=== PATIENT | female | born 1940 | race Caucasian/White ===

== ENCOUNTER 2016-05-26 20:33 | Emergency (ER) | payer OTHER ==
[~2016-05-26] VITALS: Ht 137.2 cm; Wt 72.6 kg
[2016-05-26 20:33] VITALS: BP 140/73; PULSE 96; RESP 20; TEMP 98; O2SAT 99
--- NOTE | 2016-05-26 20:33 | NUR ---
Placed in room 1 . Placed on rn cardiac, blood pressure machine and pulse oximeter. To gown for exam. Side rails up. Report given to Henri BRADLEY.
--- NOTE | 2016-05-26 20:40 | NUR ---
Pt states that she has been having chest pressure and dyspnea all day and in the last two hours, her pain and dyspnea has gotten worse. Lung sounds clear in all lobes. No distress noted. Pt has nausea but no vomitting. Will continue to monitor via cake icer. No distress noted.
--- NOTE | 2016-05-26 20:40 | NUR ---
ER Dr. Chang at bedside examining patient.
[2016-05-26] MEDS ORDERED: NACL 0.9% 1,000 ML IV ONE (20:41)
[2016-05-26] MEDS ORDERED: ONDANSETRON HCL 4 MG/2 ML VIAL IVP ONE (20:45)
[2016-05-26] MEDS ORDERED: ASPIRIN 81 MG TAB.CHEW PO ONE (21:00)
[2016-05-26] MEDS ORDERED: LORazepam 2 MG/ML VIAL (FOR ER USE) IVP ONE (21:00)
[2016-05-26 21:17] LABS: BASOPHILS % (AUTO) 0.1 % (0.0-2.0); HEMATOCRIT 32.7 % (36-48); LYMPHOCYTES # (AUTO) 0.6 K/uL (1.0-5.5); LYMPHOCYTES % (AUTO) 9.3 % (20.5-51.5); MEAN CORPUSCULAR HEMOGLOBIN 30 pg (27-31); MEAN CORPUSCULAR HGB CONC 34 % (32-36); MEAN CORPUSCULAR VOLUME 88 fL (79.0-98.0); MONOCYTES # (AUTO) 0.2 K/uL (0.0-1.0); MONOCYTES % (AUTO) 3.2 % (1.7-9.3); NEUTROPHILS % (AUTO) 87.4 % (40.0-70.0); PLATELET COUNT (AUTO) 261 K/uL (130-430); RED BLOOD CELL COUNT(AUTO) 3.71 MIL/uL (4.2-6.2); RED CELL DISTRIBUTION WIDTH 13.1 % (9.0-15.0); WHITE BLOOD COUNT (AUTO) 6.8 K/uL (4.8-10.8)
[2016-05-26 21:20] LABS: ANION GAP 13 (5-15); CALCIUM 9.1 mg/dL (8.4-11.0); CHLORIDE 99 mmol/L (98-107); CREATININE 1.36 mg/dL (0.55-1.30); GLUCOSE 238 mg/dL (70-99); POTASSIUM 3.8 mmol/L (3.5-5.1); SODIUM SERUM 137 mmol/L (136-145); UREA NITROGEN, BLOOD 26 mg/dL (8-21)
[2016-05-26 21:25] LABS: PROTHROMBIN TIME 10.8 SECS (9.5-12.5)
[2016-05-26 21:29] LABS: ALANINE AMINOTRANSFERASE 61 U/L (12-78); ALBUMIN 3.7 g/dL (3.4-4.8); ASPARTATE AMINOTRANSFERASE 39 U/L (10-37); LIPASE 137 U/L (73-393); TOTAL BILIRUBIN 0.3 mg/dL (0.0-1.0); TOTAL PROTEIN, SERUM 7.4 g/dL (6.4-8.3)
[2016-05-26 21:48] LABS: BILIRUBIN,URINE NEGATIVE (NEGATIVE); BLOOD, URINE 1+ (NEGATIVE); CLARITY/URINE CLEAR (CLEAR); COLOR,URINE YELLOW (YELLOW); GLUCOSE,URINE NEGATIVE (NEGATIVE); KETONES,URINE NEGATIVE (NEGATIVE); LEUKOCYTE ESTERASE ,URINE 1+ (NEGATIVE); NITRITE, URINE NEGATIVE (NEGATIVE); PROTEIN URINE NEGATIVE (NEGATIVE); UROBILINOGEN,URINE 0.2 (0.2-1.0)
[2016-05-26 22:24] LABS: BACTERIA,URINE FEW /HPF (None Seen); RBC,URINE 0-3 /HPF (0-3)
[2016-05-26 22:25] LABS: MUCUS,URINE None Seen /LPF (None Seen)
[2016-05-26 23:07] VITALS: BP 149/70; PULSE 88; RESP 20; TEMP 98; O2SAT 99
--- NOTE | 2016-05-26 23:07 | NUR ---
Patient given written and verbal discharge instructions and verbalizes understanding. ER MD discussed with patient the results and treatment provided. Patient in stable condition. ID arm band removed. IV catheter removed intact and dressing applied, no active bleeding. Rx of Ativan given. Patient educated on pain management and to follow up with PMD. Pain Scale 0/10. Opportunity for questions provided and answered.
== END 2016-05-26 23:07 | disposition home or self-care (01) ==
LOC: SED 20:33 → MERGE 20:33 → EDBD 20:33 → SED 23:07
DX: F41.9 Anxiety disorder, unspecified (principal); R06.4 Hyperventilation; Z88.2 Allergy status to sulfonamides
CPT/HCPCS: 36415; 71010; 80053; 81000; 83690; 84484; 85025; 85610; 87086; 96361; 96374; 96375; 99285; J2060; J2405; J7030; 93005

== ENCOUNTER 2016-06-02 10:05 | Outpatient (CLI) | payer OTHER | END 2016-06-02 20:15 | disposition home or self-care (01) | LOC: SMA 10:05 | PROVIDERS: ATTEND Family Medicine | DX: N63 Unspecified lump in breast (principal) | CPT/HCPCS: G0206 ×2 ==

== ENCOUNTER 2016-06-23 14:33 | Emergency (ER) | payer OTHER ==
[~2016-06-23] VITALS: Ht 144.8 cm; Wt 73.5 kg
[2016-06-23 15:03] VITALS: BP_SYST 155
[2016-06-23] MEDS ORDERED: ACETAMINOPHEN 500 MG TABLET PO ONE (15:15)
[2016-06-23] MEDS ORDERED: KETOROLAC TROMETHAMINE 30 MG VIAL IM ONE (15:15)
--- NOTE | 2016-06-23 15:15 | NUR ---
Patient to ER bed 4 to gown for evaluation. Side rails up. Report given to MIRNA Sandoval.
--- NOTE | 2016-06-23 15:17 | NUR ---
Pt to bed 4
--- NOTE | 2016-06-23 15:20 | NUR ---
Pt c/o mid lumbar back pain radiating to left lumbar. no deformity/injury reported or noted. reports pain is 8/10. No acute distress
--- NOTE | 2016-06-23 15:50 | NUR ---
Urine specimen collected and analyzed in ER. Results given to ER .
[2016-06-23 15:58] LABS: BILIRUBIN,URINE NEGATIVE (NEGATIVE); BLOOD, URINE 1+ (NEGATIVE); CLARITY/URINE CLEAR (CLEAR); COLOR,URINE YELLOW (YELLOW); GLUCOSE,URINE NEGATIVE (NEGATIVE); KETONES,URINE NEGATIVE (NEGATIVE); LEUKOCYTE ESTERASE ,URINE NEGATIVE (NEGATIVE); NITRITE, URINE NEGATIVE (NEGATIVE); PROTEIN URINE NEGATIVE (NEGATIVE); UROBILINOGEN,URINE 0.2 (0.2-1.0)
[2016-06-23 16:07] LABS: BACTERIA,URINE FEW /HPF (None Seen); MUCUS,URINE None Seen /LPF (None Seen); RBC,URINE 0-3 /HPF (0-3); WBC,URINE 0-3 /HPF (0-3)
[2016-06-23] MEDS ORDERED: DEXAMETHASONE SOD PHOSPHATE 10 MG/ML VIAL IM ONE (17:15)
--- NOTE | 2016-06-23 17:33 | NUR ---
Patient given written and verbal discharge instructions and verbalizes understanding. ER MD discussed with patient the results and treatment provided. Patient in stable condition. ID arm band removed. Rx of Tylenol, Flexaril given. Patient educated on pain management and to follow up with PMD. Pain Scale 3/10 and tolerable. Opportunity for questions provided and answered.
[2016-06-23 17:34] VITALS: BP_SYST 131
== END 2016-06-23 17:33 | disposition home or self-care (01) ==
LOC: SED 14:33
DX: S39.012A Strain of muscle, fascia and tendon of lower back, initial encounter (principal); J44.9 Chronic obstructive pulmonary disease, unspecified; I10 Essential (primary) hypertension; Z88.2 Allergy status to sulfonamides; X50.0XXA Overexertion from strenuous movement or load, initial encounter; Y93.89 Activity, other specified; Y92.89 Other specified places as the place of occurrence of the external cause; Y99.8 Other external cause status
CPT/HCPCS: 72100; 81000; 96372; 99285; J1100; J1885

== ENCOUNTER 2017-01-10 09:46 | Outpatient (CLI) | payer OTHER | END 2017-01-10 18:34 | disposition home or self-care (01) | LOC: SMA 09:46 | PROVIDERS: ATTEND Family Medicine | DX: R92.2 Inconclusive mammogram (principal) | CPT/HCPCS: G0204 ==

== ENCOUNTER 2018-01-11 11:26 | Outpatient (CLI) | payer OTHER | END 2018-01-11 21:03 | disposition home or self-care (01) | LOC: SMA 11:26 | PROVIDERS: ATTEND Family Medicine | DX: Z12.31 Encounter for screening mammogram for malignant neoplasm of breast (principal) | CPT/HCPCS: 77067 ==

== ENCOUNTER 2018-04-03 10:43 | Inpatient (IN) | payer OTHER ==
[~2018-04-03] VITALS: Ht 149.9 cm; Wt 73.9 kg
[2018-04-03 10:54] VITALS: BP_SYST 161
[2018-04-03] MEDS ORDERED: ONDANSETRON HCL 4 MG/2 ML VIAL IVP ONE (11:15)
[2018-04-03] MEDS ORDERED: PANTOPRAZOLE SODIUM 40 MG/VIAL (PROTONIX) IVP ONE (11:15)
[2018-04-03] MEDS ORDERED: NS 500 ML IV ONE (11:15)
[2018-04-03 11:35] LABS: BILIRUBIN,URINE NEGATIVE (NEGATIVE); BLOOD, URINE NEGATIVE (NEGATIVE); CLARITY/URINE CLEAR (CLEAR); COLOR,URINE YELLOW (YELLOW); GLUCOSE,URINE NEGATIVE (NEGATIVE); KETONES,URINE NEGATIVE (NEGATIVE); LEUKOCYTE ESTERASE ,URINE NEGATIVE (NEGATIVE); NITRITE, URINE NEGATIVE (NEGATIVE); PH,URINE 5.5 (5.0-8.0); PROTEIN URINE NEGATIVE (NEGATIVE); UROBILINOGEN,URINE 0.2 (0.2-1.0)
[2018-04-03 11:41] LABS: BASOPHILS % (AUTO) 0.7 % (0.0-2.0); EOSINOPHILS # (AUTO) 0.1 K/uL (0.0-0.4); EOSINOPHILS % (AUTO) 1.4 % (0.0-4.0); HEMATOCRIT 34.2 % (36-48); HEMOGLOBIN 11.7 g/dL (12.0-16.0); LYMPHOCYTES # (AUTO) 1.4 K/uL (1.0-5.5); LYMPHOCYTES % (AUTO) 22.4 % (20.5-51.5); MEAN CORPUSCULAR HEMOGLOBIN 29 pg (27-31); MEAN CORPUSCULAR HGB CONC 34 % (32-36); MEAN CORPUSCULAR VOLUME 84 fL (79.0-98.0); MONOCYTES # (AUTO) 0.8 K/uL (0.0-1.0); MONOCYTES % (AUTO) 12.8 % (1.7-9.3); NEUTROPHILS # (AUTO) 3.9 K/uL (1.8-7.7); NEUTROPHILS % (AUTO) 62.7 % (40.0-70.0); PLATELET COUNT (AUTO) 312 K/uL (130-430); RED BLOOD CELL COUNT(AUTO) 4.09 MIL/uL (4.2-6.2); RED CELL DISTRIBUTION WIDTH 12.6 % (9.0-15.0); WHITE BLOOD COUNT (AUTO) 6.2 K/uL (4.8-10.8)
[2018-04-03 11:54] LABS: ANION GAP 12 (5-15); CALCIUM 10.1 mg/dL (8.4-11.0); CHLORIDE 91 mmol/L (98-107); CREATININE 1.32 mg/dL (0.55-1.30); GLUCOSE 115 mg/dL (70-99); POTASSIUM 5.5 mmol/L (3.5-5.1); SODIUM SERUM 125 mmol/L (136-145); UREA NITROGEN, BLOOD 38 mg/dL (8-21)
[2018-04-03 11:59] LABS: ALANINE AMINOTRANSFERASE 148 U/L (12-78); ALBUMIN 3.8 g/dL (3.4-4.8); ASPARTATE AMINOTRANSFERASE 101 U/L (10-37); LIPASE 415 U/L (73-393); TOTAL BILIRUBIN 0.4 mg/dL (0.0-1.0)
[2018-04-03 12:17] LABS: PROTHROMBIN TIME 9.9 SECS (9.5-12.5)
[2018-04-03] MEDS ORDERED: ALBUTEROL SULFATE 0.083% 2.5 MG/3 ML VIAL.NEB INH ONE (13:00)
[2018-04-03] MEDS ORDERED: SODIUM POLYSTYRENE SULFONATE 15 GM/60 ML UDBTL PO ONE (13:00)
[2018-04-03] MEDS ORDERED: HYDR100T25 PO (13:37)
[2018-04-03] MEDS ORDERED: OMEP40CA33 PO (13:37)
[2018-04-03] MEDS ORDERED: SIMV40TA5 PO (13:37)
[2018-04-03] MEDS ORDERED: CETI1TAB2 PO (13:37)
[2018-04-03] MEDS ORDERED: ALBMDI INH (13:37)
[2018-04-03 14:12] VITALS: BP_SYST 120
[2018-04-03] MEDS: D5NS 1,000 ML IV SCH ×2 (14:41→21:39)
[2018-04-03 16:00] VITALS: BP_SYST 140
[2018-04-03] MEDS ORDERED: ONDANSETRON HCL 4 MG/2 ML VIAL IVP PRN (17:00)
[2018-04-03] MEDS ORDERED: ACETAMINOPHEN 650 MG/20.3 ML UDC PO PRN (17:00)
[2018-04-03] MEDS ORDERED: MORPHINE 4 MG/ML INJ. SYRINGE IVP PRN ×2 (17:00)
[2018-04-03 23:49] VITALS: BP_SYST 142
[2018-04-04] MEDS: D5NS 1,000 ML IV SCH ×4 (04:19→22:36)
[2018-04-04 08:00] VITALS: BP_SYST 148
[2018-04-04] MEDS: ACETAMINOPHEN 325 MG TABLET PO PRN ×2 (09:37→20:23)
[2018-04-04] MEDS ORDERED: cloNIDine HCL 0.1 MG TABLET PO PRN (10:00)
[2018-04-04] MEDS ORDERED: IPRATROPIUM BROM 0.5 MG/2.5 ML VIAL.NEB (ATROVENT) INH PRN (10:00)
[2018-04-04] MEDS ORDERED: ENALAPRILAT DIHYDRATE 1.25 MG/ML VIAL IVP PRN (10:00)
[2018-04-04] MEDS ORDERED: ALBUTEROL SULFATE 0.083% 2.5 MG/3 ML VIAL.NEB INH PRN (10:00)
[2018-04-04 10:26] LABS: BASOPHILS # (AUTO) 0.1 K/uL (0.0-0.2); BASOPHILS % (AUTO) 1.6 % (0.0-2.0); EOSINOPHILS # (AUTO) 0.1 K/uL (0.0-0.4); EOSINOPHILS % (AUTO) 2.7 % (0.0-4.0); HEMATOCRIT 31.5 % (36-48); HEMOGLOBIN 10.3 g/dL (12.0-16.0); LYMPHOCYTES # (AUTO) 0.7 K/uL (1.0-5.5); MEAN CORPUSCULAR HEMOGLOBIN 28 pg (27-31); MEAN CORPUSCULAR HGB CONC 33 % (32-36); MEAN CORPUSCULAR VOLUME 86 fL (79.0-98.0); MONOCYTES # (AUTO) 0.5 K/uL (0.0-1.0); MONOCYTES % (AUTO) 14.5 % (1.7-9.3); NEUTROPHILS # (AUTO) 2.1 K/uL (1.8-7.7); NEUTROPHILS % (AUTO) 61.2 % (40.0-70.0); PLATELET COUNT (AUTO) 249 K/uL (130-430); RED BLOOD CELL COUNT(AUTO) 3.67 MIL/uL (4.2-6.2); RED CELL DISTRIBUTION WIDTH 12.8 % (9.0-15.0); WHITE BLOOD COUNT (AUTO) 3.5 K/uL (4.8-10.8)
[2018-04-04 10:30] LABS: ANION GAP 9 (5-15); CALCIUM 8.3 mg/dL (8.4-11.0); CHLORIDE 101 mmol/L (98-107); CREATININE 0.99 mg/dL (0.55-1.30); GLUCOSE 120 mg/dL (70-99); POTASSIUM 4.2 mmol/L (3.5-5.1); SODIUM SERUM 132 mmol/L (136-145); UREA NITROGEN, BLOOD 16 mg/dL (8-21)
[2018-04-04 10:36] LABS: ALANINE AMINOTRANSFERASE 112 U/L (12-78); ALBUMIN 2.9 g/dL (3.4-4.8); ASPARTATE AMINOTRANSFERASE 82 U/L (10-37); TOTAL BILIRUBIN 0.4 mg/dL (0.0-1.0)
[2018-04-04] MEDS: ALBUTEROL SULFATE 0.083% 2.5 MG/3 ML VIAL.NEB INH SCH ×4 (11:27→23:00)
[2018-04-04] MEDS: hydrALAZINE HCL 25 MG TABLET PO SCH ×2 (11:28→17:26)
[2018-04-04] MEDS: IPRATROPIUM BROM 0.5 MG/2.5 ML VIAL.NEB (ATROVENT) INH SCH ×4 (11:28→23:00)
[2018-04-04 12:02] VITALS: BP_SYST 148
[2018-04-04 16:02] VITALS: BP_SYST 110
[2018-04-04 20:00] VITALS: BP_SYST 147
[2018-04-04] MEDS ORDERED: SIMVASTATIN 40 MG TABLET PO SCH (21:00)
[2018-04-05 00:03] VITALS: BP_SYST 146
[2018-04-05] MEDS: D5NS 1,000 ML IV SCH (04:44)
[2018-04-05] MEDS ORDERED: OMEPRAZOLE 20 MG CAPSULE.DR (PriLOSEC) PO SCH (06:00)
[2018-04-05 07:29] LABS: ALBUMIN 2.8 g/dL (3.4-4.8); BILIRUBIN,DIRECT 0.2 mg/dL (0.0-0.3); TOTAL BILIRUBIN 0.4 mg/dL (0.0-1.0)
[2018-04-05 07:32] LABS: INR 1.1 (0.8-1.2); PROTHROMBIN TIME 10.9 SECS (9.5-12.5)
[2018-04-05] MEDS: IPRATROPIUM BROM 0.5 MG/2.5 ML VIAL.NEB (ATROVENT) INH SCH ×3 (07:50→15:07)
[2018-04-05] MEDS: ALBUTEROL SULFATE 0.083% 2.5 MG/3 ML VIAL.NEB INH SCH ×3 (07:50→15:07)
[2018-04-05 07:55] VITALS: BP_SYST 144
[2018-04-05] MEDS: hydrALAZINE HCL 25 MG TABLET PO SCH ×3 (08:00→18:00)
[2018-04-05] MEDS: fentaNYL CITRATE/PF 100 MCG/2 ML AMP ONE ×3 (09:55→11:42)
[2018-04-05] MEDS: MIDAZOLAM HCL 5 MG/5 ML VIAL ONE ×3 (09:55→11:40)
[2018-04-05] MEDS ORDERED: SIMETHICONE 40 MG/0.6 ML ML ONE (09:55)
[2018-04-05 11:33] VITALS: BP_SYST 136
[2018-04-05] MEDS ORDERED: MILK OF MAGNESIA 30 ML UDC PO ONE (16:00)
[2018-04-05 16:15] VITALS: BP_SYST 147
[2018-04-05 17:04] VITALS: BP_SYST 134
[2018-04-05 20:40] VITALS: BP_SYST 157
[2018-04-06 07:07] LABS: HEPATITIS A AB, IgM Negative (Negative); HEPATITIS B CORE AB, IgM Negative (Negative); HEPATITIS B SURFACE AG Negative (Negative)
== END 2018-04-05 20:50 | disposition home or self-care (01) | DRG 391 ==
LOC: SED 10:43 → SMU 13:53
PROVIDERS: ADMIT Internal Medicine Hospice and Palliative Medicine; ATTEND Internal Medicine Hospice and Palliative Medicine
PROC: 0DB68ZX Excision of Stomach, Via Natural or Artificial Opening Endoscopic, Diagnostic (ICD-10-PCS; 2018-04-05)
PROC: 0DB98ZX Excision of Duodenum, Via Natural or Artificial Opening Endoscopic, Diagnostic (ICD-10-PCS; principal; 2018-04-05 11:00)
DX: K29.80 Duodenitis without bleeding (principal); K85.90 Acute pancreatitis without necrosis or infection, unspecified; E87.1 Hypo-osmolality and hyponatremia; I10 Essential (primary) hypertension; K44.9 Diaphragmatic hernia without obstruction or gangrene; E87.5 Hyperkalemia; K75.9 Inflammatory liver disease, unspecified; K29.70 Gastritis, unspecified, without bleeding; T50.905A Adverse effect of unspecified drugs, medicaments and biological substances, initial encounter; Z90.710 Acquired absence of both cervix and uterus; Z90.49 Acquired absence of other specified parts of digestive tract; Z88.2 Allergy status to sulfonamides; Y92.89 Other specified places as the place of occurrence of the external cause
CPT/HCPCS: 36415; 43239; 70450-TC; 71045; 74181; 80053; 80074; 80076; 81003; 83690-TC; 84484; 85025; 85610-TC; 85730-TC; 87081; 88305; 88312; 88313; 93005; 94640; 96361; 96374; 96375; 99285; C9113; J2250; J2405; J3010; J7030; J7042; J7613

== ENCOUNTER 2019-02-10 09:14 | Outpatient (CLI) | payer OTHER ==
[~2019-02-10 09:14] MED LIST: ALBMDI INH; CETI1TAB2 PO; HYDR100T25 PO; OMEP40CA33 PO; SIMV40TA5 PO
== END 2019-02-10 19:07 | disposition home or self-care (01) ==
LOC: SMA 09:14
PROVIDERS: ATTEND Family Medicine
DX: Z12.31 Encounter for screening mammogram for malignant neoplasm of breast (principal)
CPT/HCPCS: 77067